=== PATIENT | female | born 1940 | race Asian ===

== ENCOUNTER 2023-08-05 17:22 | Inpatient (IN) | payer MEDICARE, OTHER ==
[~2023-08-05] VITALS: Ht 154.9 cm; Wt 55.3 kg
[2023-08-05] MEDS ORDERED: ACET-868 PO (18:47)
[2023-08-05] MEDS ORDERED: BUSP5TAB3 PO (18:47)
[2023-08-05] MEDS ORDERED: LATA2.5D15 EACHEYE (18:47)
[2023-08-05] MEDS ORDERED: BISA10SU11 RC (18:47)
[2023-08-05] MEDS ORDERED: MEMA10TA PO (18:47)
[2023-08-05] MEDS ORDERED: ATOR10TA PO (18:47)
[2023-08-05] MEDS ORDERED: DONE10TA44 PO (18:47)
[2023-08-05] MEDS ORDERED: NA P133E RC (18:47)
[2023-08-05] MEDS ORDERED: MAGN400O6 PO (18:47)
[2023-08-05] MEDS ORDERED: MAG-151 PO (18:47)
[2023-08-05 19:58] LABS: APPEARANCE,URINE CLEAR (CLEAR); BILIRUBIN,URINE NEGATIVE (NEGATIVE); BLOOD, URINE NEGATIVE Ery/uL (NEGATIVE); COLOR,URINE YELLOW (YELLOW); KETONES,URINE NEGATIVE (NEGATIVE); LEUKOCYTE ESTERASE ,URINE TRACE (NEGATIVE); NITRITE, URINE NEGATIVE (NEGATIVE); PH,URINE 6.5 (5.0-8.0); PROTEIN,URINE NEGATIVE (NEGATIVE); UGLUCOSE NEGATIVE (NEGATIVE); UROBILINOGEN,URINE 0.2 EU/dL (0.2)
[2023-08-05] MEDS ORDERED: HALOPERIDOL LACTATE INJ 5 MG/ML VIAL IM ONE (20:00)
[2023-08-05] MEDS ORDERED: HALOPERIDOL LACTATE INJ 5 MG/ML VIAL ONE (20:04)
[2023-08-05 20:10] LABS: BASOPHILS % (AUTO) 0.6 % (0.0-2.0); EOSINOPHILS # (AUTO) 0.2 K/uL (0.0-0.7); EOSINOPHILS % (AUTO) 4.1 % (0.0-6.0); HEMATOCRIT 34 % (33-45); HEMOGLOBIN 11.3 g/dL (11.5-14.8); LYMPHOCYTES # (AUTO) 1.6 K/uL (0.8-4.8); MEAN CORPUSCULAR HEMOGLOBIN 31 PG (26.0-33.0); MEAN CORPUSCULAR HGB CONC 33 g/dl (31.0-36.0); MEAN CORPUSCULAR VOLUME 94 fL (82-100); MONOCYTES # (AUTO) 0.3 K/uL (0.1-1.30); MONOCYTES % (AUTO) 7.7 % (2.0-12.0); NEUTROPHILS % (AUTO) 49.6 % (43.0-81.0); PLATELET COUNT (AUTO) 212 K/uL (150-450); RED BLOOD CELL COUNT(AUTO) 3.61 MIL/uL (4.0-5.2); RED CELL DISTRIBUTION WIDTH 14.8 % (11.5-15.0); WHITE BLOOD COUNT (AUTO) 4.1 K/uL (4.3-11.0)
[2023-08-05 20:20] LABS: CALCIUM, SERUM 9.3 mg/dL (8.5-10.1); CARBON DIOXIDE 28 mmol/L (21-32); CHLORIDE 104 mmol/L (98-107); CREATININE 0.6 mg/dL (0.6-1.3); GLUCOSE 112 mg/dL (74-106); POTASSIUM 3.6 mmol/L (3.5-5.1); SODIUM SERUM 139 mmol/L (136-145); UREA NITROGEN, BLOOD 18 mg/dL (7-18)
[2023-08-05 20:25] LABS: ALANINE AMINOTRANSFERASE 11 U/L (12-78); ALBUMIN 3.6 g/dL (3.4-5.0); ALCOHOL, BLOOD < 3 mg/dL (0-10); ALKALINE PHOSPHATASE 70 U/L (46-116); ASPARTATE AMINOTRANSFERASE 16 U/L (15-37); BILIRUBIN,DIRECT 0.1 mg/dL (0.0-0.2); BILIRUBIN,TOTAL 0.7 mg/dL (0.2-1.0); SALICYLATE 0.5 mg/dL (2.8-20.0); TOTAL PROTEIN, SERUM 7.2 g/dL (6.4-8.2)
[2023-08-05 20:25] LABS: AMPHETAMINE, URINE NEGATIVE (NEGATIVE); BARBITURATE, URINE NEGATIVE (NEGATIVE); CANNABINOID, URINE NEGATIVE (NEGATIVE); COCCAINE, URINE NEGATIVE (NEGATIVE); OPIATE, URINE NEGATIVE (NEGATIVE); PHENCYCLIDINE SCREEN,URINE NEGATIVE (NEGATIVE)
[2023-08-05 20:26] LABS: ACETAMINOPHEN 0 ug/ml (10-30)
[2023-08-05 20:40] LABS: ADD URINE CULTURE NO; BACTERIA,URINE None seen /HPF (None Seen); RBC,URINE NONE SEEN /HPF (0-2); SQUAMOUS EPITHELIAL CELL,UR None Seen /HPF (None Seen); WBC,URINE 0-2 /HPF (0-3)
[2023-08-05 22:41] LABS: BENZODIAZEPINE, URINE NEGATIVE (NEGATIVE)
[2023-08-06 03:43] VITALS: BP 123/61; TEMP 97.7; O2SAT 95
[2023-08-06 08:00] VITALS: BP 128/68; TEMP 97.6; O2SAT 98
[2023-08-06] MEDS ORDERED: BLOOD SUGAR DIAGNOSTIC 1 EACH STRIP IN ONE (08:00)
[2023-08-06] MEDS ORDERED: ACETAMINOPHEN 325 MG TABLET PO PRN ×2 (08:00→09:00)
[2023-08-06] MEDS ORDERED: ZOLPIDEM TARTRATE 5 MG TABLET PO PRN (08:00)
[2023-08-06] MEDS ORDERED: MAGNESIUM HYDROXIDE 30 ML UDC PO PRN ×2 (08:00→09:00)
[2023-08-06] MEDS ORDERED: LORAZEPAM 0.5 MG TABLET PO PRN (08:00)
[2023-08-06] MEDS ORDERED: MAG HYDROX/AL HYDROX/SIMETH 30 ML UDC PO PRN (08:00)
[2023-08-06] MEDS ORDERED: NA PHOS,M-B/NA PHOS,DI-BA 1 EA ENEMA RC PRN (09:00)
[2023-08-06] MEDS ORDERED: Medication Not On Formulary EA (Mag Hydrox/Aluminum Hyd/Simeth (Geri-Lanta Liquid) 30 ML PO PRN (09:00)
[2023-08-06] MEDS: MEMANTINE HCL 5 MG TABLET PO SCH ×3 (09:00→21:25)
[2023-08-06] MEDS ORDERED: BISACODYL SUPP (10 MG) 10 MG/SUPP.RECT SUPP.RECT RC PRN (09:00)
[2023-08-06] MEDS: busPIRone 5 MG TABLET PO SCH ×2 (13:26→17:59)
[2023-08-06 16:00] VITALS: BP 116/77; TEMP 98.2; O2SAT 99
[2023-08-06] MEDS: DONEPEZIL 5 MG TABLET PO SCH ×2 (21:25→21:36)
[2023-08-06] MEDS: ATORVASTATIN 10 MG TABLET PO SCH ×2 (21:25→21:36)
[2023-08-06] MEDS: LATANOPROST EYE DROP 0.005% 2.5 ML BOTTLE EACHEYE SCH ×2 (21:28→21:36)
[2023-08-07 08:00] VITALS: BP 125/72; TEMP 98.6; O2SAT 98
[2023-08-07 08:11] LABS: ALANINE AMINOTRANSFERASE 9 U/L (12-78); ALBUMIN 3.2 g/dL (3.4-5.0); ALKALINE PHOSPHATASE 63 U/L (46-116); ASPARTATE AMINOTRANSFERASE 20 U/L (15-37); BILIRUBIN,TOTAL 0.9 mg/dL (0.2-1.0); CALCIUM, SERUM 8.9 mg/dL (8.5-10.1); CARBON DIOXIDE 25 mmol/L (21-32); CHLORIDE 106 mmol/L (98-107); CREATININE 0.5 mg/dL (0.6-1.3); GLUCOSE 95 mg/dL (74-106); POTASSIUM 3.6 mmol/L (3.5-5.1); SODIUM SERUM 139 mmol/L (136-145); TOTAL PROTEIN, SERUM 6.6 g/dL (6.4-8.2); UREA NITROGEN, BLOOD 19 mg/dL (7-18)
[2023-08-07 08:13] LABS: CREATININE 0.5 mg/dL (0.6-1.3)
[2023-08-07 08:27] LABS: CHOLESTEROL 292 mg/dL (<200); HDL CHOLESTEROL 69 mg/dL (40-60); LDL 185 mg/dL (0-99); TRIGLYCERIDES 92 mg/dL (30-150)
[2023-08-07] MEDS: busPIRone 5 MG TABLET PO SCH ×3 (09:00→17:00)
[2023-08-07] MEDS: MEMANTINE HCL 5 MG TABLET PO SCH ×2 (09:00→21:00)
[2023-08-07] MEDS: SERTRALINE HCL 25 MG TABLET PO SCH (09:00)
[2023-08-07 16:00] VITALS: BP 110/72; TEMP 98; O2SAT 96
[2023-08-07 20:00] VITALS: BP 115/67; TEMP 98.3; O2SAT 96
[2023-08-07] MEDS: LATANOPROST EYE DROP 0.005% 2.5 ML BOTTLE EACHEYE SCH (21:42)
[2023-08-07] MEDS: DONEPEZIL 5 MG TABLET PO SCH (21:42)
[2023-08-07] MEDS: ATORVASTATIN 10 MG TABLET PO SCH (21:42)
[2023-08-08 08:00] VITALS: BP 115/67; TEMP 97.8; O2SAT 97
[2023-08-08] MEDS: MEMANTINE HCL 5 MG TABLET PO SCH ×3 (08:24→21:16)
[2023-08-08] MEDS: busPIRone 5 MG TABLET PO SCH ×3 (08:24→16:13)
[2023-08-08] MEDS: SERTRALINE HCL 25 MG TABLET PO SCH (08:26)
[2023-08-08 16:00] VITALS: BP 123/76; TEMP 98; O2SAT 96
[2023-08-08 21:11] VITALS: BP 127/73; TEMP 98.2; O2SAT 96
[2023-08-08] MEDS: ATORVASTATIN 10 MG TABLET PO SCH ×2 (21:16→21:31)
[2023-08-08] MEDS: DONEPEZIL 5 MG TABLET PO SCH ×2 (21:16→21:31)
[2023-08-08] MEDS: LATANOPROST EYE DROP 0.005% 2.5 ML BOTTLE EACHEYE SCH (21:17)
[2023-08-09 08:00] VITALS: BP_SYST 106; BP_SYST 113; BP_DIAS 64; BP_DIAS 75; TEMP 97.5; TEMP 98.2; O2SAT 96; O2SAT 97
[2023-08-09] MEDS: busPIRone 5 MG TABLET PO SCH (08:13)
[2023-08-09] MEDS: SERTRALINE HCL 25 MG TABLET PO SCH (08:14)
[2023-08-09] MEDS: MEMANTINE HCL 5 MG TABLET PO SCH ×2 (08:14→21:00)
[2023-08-09] MEDS: DIVALPROEX SODIUM 125 MG CAP.SPRINK PO SCH ×2 (09:30→21:00)
[2023-08-09 19:44] VITALS: BP 111/71; TEMP 97.8; O2SAT 99
[2023-08-09] MEDS: LATANOPROST EYE DROP 0.005% 2.5 ML BOTTLE EACHEYE SCH (21:04)
[2023-08-09] MEDS: DONEPEZIL 5 MG TABLET PO SCH (21:04)
[2023-08-09] MEDS: ATORVASTATIN 10 MG TABLET PO SCH (21:13)
[2023-08-10 08:00] VITALS: BP 116/64; TEMP 97.7; O2SAT 100
[2023-08-10] MEDS: DIVALPROEX SODIUM 125 MG CAP.SPRINK PO SCH ×5 (08:45→21:20)
[2023-08-10] MEDS: MEMANTINE HCL 5 MG TABLET PO SCH ×4 (08:45→21:00)
[2023-08-10 16:00] VITALS: BP 100/60; TEMP 97.9; O2SAT 99
[2023-08-10] MEDS: DONEPEZIL 5 MG TABLET PO SCH ×2 (21:20→21:24)
[2023-08-10] MEDS: ATORVASTATIN 10 MG TABLET PO SCH ×2 (21:20→21:25)
[2023-08-10 21:21] VITALS: BP 108/64; TEMP 98; O2SAT 99
[2023-08-10] MEDS: LATANOPROST EYE DROP 0.005% 2.5 ML BOTTLE EACHEYE SCH ×2 (21:21→21:24)
[2023-08-11 08:00] VITALS: BP 110/73; TEMP 97.7; O2SAT 98
[2023-08-11] MEDS: MEMANTINE HCL 5 MG TABLET PO SCH (09:00)
[2023-08-11] MEDS: DIVALPROEX SODIUM 125 MG CAP.SPRINK PO SCH (09:00)
== END 2023-08-11 15:31 | DRG 885 ==
LOC: ER 17:44 → GPS 08-06 02:37
PROVIDERS: ADMIT Psychiatry & Neurology Psychiatry; ATTEND Internal Medicine
DX: F39 Unspecified mood [affective] disorder (principal); F03.93 Unspecified dementia, unspecified severity, with mood disturbance; F03.918 Unspecified dementia, unspecified severity, with other behavioral disturbance; F29 Unspecified psychosis not due to a substance or known physiological condition; F41.9 Anxiety disorder, unspecified; Z73.6 Limitation of activities due to disability; E78.5 Hyperlipidemia, unspecified; D63.8 Anemia in other chronic diseases classified elsewhere; F32.A Depression, unspecified; Z66 Do not resuscitate; Z79.899 Other long term (current) drug therapy; Z86.73 Personal history of transient ischemic attack (TIA), and cerebral infarction without residual deficits; M62.81 Muscle weakness (generalized); Z20.822 Contact with and (suspected) exposure to COVID-19
CPT/HCPCS: 36415; 80048-TC; 80053-TC; 80061-TC; 80076-TC; 81001; 82565-TC; 82962-TC; 85025-TC; G0480; J1630

== ENCOUNTER 2024-02-11 12:19 | Inpatient (IN) | payer MEDICARE, OTHER ==
[~2024-02-11] VITALS: Ht 154.9 cm; Wt 54.9 kg
[~2024-02-11 12:19] MED LIST: ACET-868 PO; ATOR10TA PO; BISA10SU11 RC; BUSP5TAB3 PO; DONE10TA44 PO; LATA2.5D15 EACHEYE; MAG-151 PO; MAGN400O6 PO; MEMA10TA PO; NA P133E RC
[2024-02-11 13:12] LABS: BASOPHILS % (AUTO) 0.2 % (0.0-2.0); EOSINOPHILS # (AUTO) 0.1 K/uL (0.0-0.7); EOSINOPHILS % (AUTO) 0.8 % (0.0-6.0); HEMATOCRIT 36 % (33-45); HEMOGLOBIN 11.8 g/dL (11.5-14.8); LYMPHOCYTES # (AUTO) 1.3 K/uL (0.8-4.8); MEAN CORPUSCULAR HEMOGLOBIN 31 PG (26.0-33.0); MEAN CORPUSCULAR HGB CONC 33 g/dl (31.0-36.0); MEAN CORPUSCULAR VOLUME 94 fL (82-100); MONOCYTES # (AUTO) 0.4 K/uL (0.1-1.30); MONOCYTES % (AUTO) 5.3 % (2.0-12.0); NEUTROPHILS # (AUTO) 5.3 K/uL (1.8-8.9); NEUTROPHILS % (AUTO) 74.7 % (43.0-81.0); PLATELET COUNT (AUTO) 203 K/uL (150-450); RED BLOOD CELL COUNT(AUTO) 3.83 MIL/uL (4.0-5.2); RED CELL DISTRIBUTION WIDTH 13.9 % (11.5-15.0)
[2024-02-11 13:20] LABS: CALCIUM, SERUM 9.3 mg/dL (8.5-10.1); CARBON DIOXIDE 26 mmol/L (21-32); CHLORIDE 104 mmol/L (98-107); CREATININE 0.7 mg/dL (0.6-1.3); GLUCOSE 125 mg/dL (74-106); POTASSIUM 3.8 mmol/L (3.5-5.1); SODIUM SERUM 137 mmol/L (136-145); UREA NITROGEN, BLOOD 23 mg/dL (7-18)
[2024-02-11 13:26] LABS: ALANINE AMINOTRANSFERASE 21 U/L (12-78); ALBUMIN 3.4 g/dL (3.4-5.0); ALCOHOL, BLOOD < 3 mg/dL (0-10); ALKALINE PHOSPHATASE 78 U/L (46-116); ASPARTATE AMINOTRANSFERASE 23 U/L (15-37); BILIRUBIN,DIRECT 0.1 mg/dL (0.0-0.2); BILIRUBIN,TOTAL 0.5 mg/dL (0.2-1.0); TOTAL PROTEIN, SERUM 7.3 g/dL (6.4-8.2)
[2024-02-11 13:28] LABS: ACETAMINOPHEN <10 ug/ml (10-30)
[2024-02-11 14:12] LABS: APPEARANCE,URINE Clear (CLEAR); BILIRUBIN,URINE Negative (NEGATIVE); BLOOD, URINE Trace-intact Ery/uL (NEGATIVE); COLOR,URINE YELLOW (YELLOW); KETONES,URINE Negative (NEGATIVE); LEUKOCYTE ESTERASE ,URINE Small (NEGATIVE); NITRITE, URINE Positive (NEGATIVE); PROTEIN,URINE Negative (NEGATIVE); UGLUCOSE Negative (NEGATIVE); UROBILINOGEN,URINE 0.2 EU/dL (0.2)
[2024-02-11] MEDS: CEFTRIAXONE 1GM BAG (ER ONLY) 50 ML IV ONE (14:50)
[2024-02-11 14:56] LABS: AMPHETAMINE, URINE NEGATIVE (NEGATIVE); BARBITURATE, URINE NEGATIVE (NEGATIVE); BENZODIAZEPINE, URINE NEGATIVE (NEGATIVE); CANNABINOID, URINE NEGATIVE (NEGATIVE); COCCAINE, URINE NEGATIVE (NEGATIVE); OPIATE, URINE NEGATIVE (NEGATIVE); PHENCYCLIDINE SCREEN,URINE NEGATIVE (NEGATIVE)
[2024-02-11 15:07] LABS: ADD URINE CULTURE YES; BACTERIA,URINE 3+ /HPF (None Seen)
[2024-02-11] MEDS ORDERED: DIVA-76 PO (18:24)
[2024-02-12] MEDS ORDERED: ZOLPIDEM TARTRATE 5 MG TABLET PO PRN
[2024-02-12] MEDS ORDERED: LORAZEPAM 1 MG TABLET PO PRN
[2024-02-12] MEDS ORDERED: MAG HYDROX/AL HYDROX/SIMETH 30 ML UDC PO PRN
[2024-02-12] MEDS ORDERED: ACETAMINOPHEN 325 MG TABLET PO PRN
[2024-02-12] MEDS ORDERED: MAGNESIUM HYDROXIDE 30 ML UDC PO PRN
[2024-02-12 00:38] VITALS: BP 123/68; TEMP 98; O2SAT 98
[2024-02-12] MEDS: BLOOD SUGAR DIAGNOSTIC 1 EACH STRIP IN ONE (00:58)
[2024-02-12 07:47] LABS: BASOPHILS % (AUTO) 0.2 % (0.0-2.0); EOSINOPHILS % (AUTO) 0.1 % (0.0-6.0); HEMATOCRIT 36 % (33-45); HEMOGLOBIN 12.2 g/dL (11.5-14.8); LYMPHOCYTES # (AUTO) 0.8 K/uL (0.8-4.8); LYMPHOCYTES % (AUTO) 9.5 % (20.0-44.0); MEAN CORPUSCULAR HEMOGLOBIN 32 PG (26.0-33.0); MEAN CORPUSCULAR HGB CONC 34 g/dl (31.0-36.0); MEAN CORPUSCULAR VOLUME 93 fL (82-100); MONOCYTES # (AUTO) 0.5 K/uL (0.1-1.30); MONOCYTES % (AUTO) 5.8 % (2.0-12.0); NEUTROPHILS % (AUTO) 84.4 % (43.0-81.0); PLATELET COUNT (AUTO) 209 K/uL (150-450); RED BLOOD CELL COUNT(AUTO) 3.85 MIL/uL (4.0-5.2); RED CELL DISTRIBUTION WIDTH 13.8 % (11.5-15.0); WHITE BLOOD COUNT (AUTO) 8.3 K/uL (4.3-11.0)
[2024-02-12 08:00] VITALS: BP 120/79; TEMP 97.5; O2SAT 96
[2024-02-12 08:07] LABS: CARBON DIOXIDE 23 mmol/L (21-32); CHLORIDE 102 mmol/L (98-107); CREATININE 0.6 mg/dL (0.6-1.3); GLUCOSE 120 mg/dL (74-106); POTASSIUM 3.5 mmol/L (3.5-5.1); SODIUM SERUM 139 mmol/L (136-145); UREA NITROGEN, BLOOD 13 mg/dL (7-18)
[2024-02-12] MEDS: MEMANTINE HCL 5 MG TABLET PO SCH (08:17)
[2024-02-12] MEDS: busPIRone 5 MG TABLET PO SCH (09:00)
[2024-02-12] MEDS: SERTRALINE HCL 25 MG TABLET PO SCH (09:00)
[2024-02-12] MEDS: DIVALPROEX SODIUM 250 MG TABLET.DR PO SCH (09:00)
[2024-02-12] MEDS ORDERED: busPIRone 5 MG TABLET PO SCH (09:00)
[2024-02-12] MEDS ORDERED: DIVALPROEX SODIUM 250 MG TABLET.DR PO SCH (09:00)
[2024-02-12] MEDS: CEPHALEXIN MONOHYDRATE 500 MG CAPSULE PO SCH (11:00)
[2024-02-12 11:26] LABS: CHOLESTEROL 357 mg/dL (<200); HDL CHOLESTEROL 83 mg/dL (40-60); LDL 236 mg/dL (0-99); TRIGLYCERIDES 97 mg/dL (30-150)
[2024-02-12 16:00] VITALS: BP 134/80; TEMP 99; O2SAT 98
[2024-02-12 20:00] VITALS: BP 125/76; TEMP 97.6; O2SAT 98
[2024-02-12] MEDS: LATANOPROST EYE DROP 0.005% 2.5 ML BOTTLE EACHEYE SCH (21:25)
[2024-02-12] MEDS: DONEPEZIL 5 MG TABLET PO SCH (21:26)
[2024-02-12] MEDS: ATORVASTATIN 10 MG TABLET PO SCH (21:27)
[2024-02-13 08:00] VITALS: BP 126/77; TEMP 97.6; O2SAT 95
[2024-02-13 16:00] VITALS: BP 136/69; TEMP 98.6; O2SAT 95
[2024-02-13 20:32] VITALS: BP 137/80; TEMP 99; O2SAT 98
[2024-02-14 08:00] VITALS: BP 117/79; TEMP 97.7; O2SAT 97
[2024-02-14 16:00] VITALS: BP 127/75; TEMP 98.6; O2SAT 97
[2024-02-14] MEDS: OLANZAPINE 2.5 MG TABLET PO SCH (16:44)
[2024-02-14 20:00] VITALS: BP 127/77; TEMP 98.4; O2SAT 97
[2024-02-15 08:00] VITALS: BP 131/71; TEMP 97.8; O2SAT 97
[2024-02-15 16:00] VITALS: BP 129/73; TEMP 97.9; O2SAT 98
[2024-02-15 20:33] VITALS: BP 99/67; TEMP 98; O2SAT 99
[2024-02-16 08:00] VITALS: BP 109/68; TEMP 98.6; O2SAT 99
[2024-02-16] MEDS: risperiDONE 1 MG TABLET PO SCH (15:00)
[2024-02-16] MEDS: OLANZAPINE 10 MG VIAL IM PRN (15:23)
[2024-02-16 16:00] VITALS: BP 120/67; TEMP 98.6; O2SAT 96
[2024-02-16 20:32] VITALS: BP 117/74; TEMP 98.6; O2SAT 97
[2024-02-17 08:00] VITALS: BP 106/69; TEMP 98.6; O2SAT 95
[2024-02-17 16:00] VITALS: BP 106/65; TEMP 97.9; O2SAT 97
[2024-02-17 20:00] VITALS: BP 115/74; TEMP 98; O2SAT 97
[2024-02-18 08:00] VITALS: BP 117/67; TEMP 97.8; O2SAT 97
[2024-02-18 16:00] VITALS: BP 96/68; TEMP 97.9; O2SAT 99
[2024-02-18 20:00] VITALS: BP 104/67; TEMP 98.1; O2SAT 98
[2024-02-18] MEDS ORDERED: Z GUARD REMEDY 4 OZ OINT TP PRN (20:00)
[2024-02-18 22:23] VITALS: BP 109/70; TEMP 98; O2SAT 98
[2024-02-19 08:00] VITALS: BP 120/69; TEMP 97.8; O2SAT 98
[2024-02-19 12:40] LABS: VALPROIC ACID 22 ug/mL (50-100)
[2024-02-19 12:43] LABS: ALANINE AMINOTRANSFERASE 12 U/L (12-78); ALBUMIN 3.1 g/dL (3.4-5.0); ALKALINE PHOSPHATASE 105 U/L (46-116); ASPARTATE AMINOTRANSFERASE 13 U/L (15-37); BILIRUBIN,TOTAL 0.9 mg/dL (0.2-1.0); CALCIUM, SERUM 9.1 mg/dL (8.5-10.1); CARBON DIOXIDE 28 mmol/L (21-32); CHLORIDE 104 mmol/L (98-107); CREATININE 0.8 mg/dL (0.6-1.3); GLUCOSE 112 mg/dL (74-106); SODIUM SERUM 143 mmol/L (136-145); TOTAL PROTEIN, SERUM 7.7 g/dL (6.4-8.2); UREA NITROGEN, BLOOD 27 mg/dL (7-18)
[2024-02-19 12:47] LABS: BASOPHILS % (AUTO) 0.4 % (0.0-2.0); EOSINOPHILS # (AUTO) 0.1 K/uL (0.0-0.7); EOSINOPHILS % (AUTO) 1.9 % (0.0-6.0); HEMATOCRIT 40 % (33-45); HEMOGLOBIN 13.4 g/dL (11.5-14.8); LYMPHOCYTES # (AUTO) 1.3 K/uL (0.8-4.8); LYMPHOCYTES % (AUTO) 20.8 % (20.0-44.0); MEAN CORPUSCULAR HEMOGLOBIN 31 PG (26.0-33.0); MEAN CORPUSCULAR HGB CONC 33 g/dl (31.0-36.0); MEAN CORPUSCULAR VOLUME 93 fL (82-100); MONOCYTES # (AUTO) 0.4 K/uL (0.1-1.30); MONOCYTES % (AUTO) 6.7 % (2.0-12.0); NEUTROPHILS # (AUTO) 4.4 K/uL (1.8-8.9); NEUTROPHILS % (AUTO) 70.2 % (43.0-81.0); PLATELET COUNT (AUTO) 240 K/uL (150-450); RED BLOOD CELL COUNT(AUTO) 4.32 MIL/uL (4.0-5.2); RED CELL DISTRIBUTION WIDTH 13.7 % (11.5-15.0); WHITE BLOOD COUNT (AUTO) 6.3 K/uL (4.3-11.0)
[2024-02-19 16:15] VITALS: BP 102/69; TEMP 98.3; O2SAT 97
[2024-02-19 20:00] VITALS: BP 124/71; TEMP 98.3; O2SAT 97
[2024-02-20 08:00] VITALS: BP_SYST 100; BP_SYST 145; BP_DIAS 59; BP_DIAS 76; TEMP 97.8; TEMP 97.9; O2SAT 95; O2SAT 96
[2024-02-20 16:04] VITALS: BP 103/68; TEMP 98.3; O2SAT 96
[2024-02-20 20:28] VITALS: BP 96/64; TEMP 98.3; O2SAT 98
[2024-02-21 08:00] VITALS: BP 97/62; TEMP 97.6; O2SAT 96
[2024-02-21] MEDS: PALIPERIDONE PALMITATE 234 MG/1.5 ML SYRINGE IM ONE (09:10)
[2024-02-21 16:00] VITALS: BP 98/65; TEMP 98.3; O2SAT 96
[2024-02-21 17:12] VITALS: BP 103/65
[2024-02-21 21:18] VITALS: BP 97/63; TEMP 98.2; O2SAT 96
[2024-02-22 08:00] VITALS: BP 110/69; TEMP 97.9; O2SAT 97
[2024-02-22 16:00] VITALS: BP 105/65; TEMP 98.7; O2SAT 97
[2024-02-22 21:09] VITALS: BP 102/63; TEMP 98.8; O2SAT 97
[2024-02-23 08:00] VITALS: BP 97/66; TEMP 98; O2SAT 97
[2024-02-23 16:00] VITALS: BP 98/63; TEMP 98; O2SAT 98
[2024-02-23 20:00] VITALS: BP 98/62; TEMP 98.3; O2SAT 95
[2024-02-24 08:00] VITALS: BP 99/63; TEMP 97.7; O2SAT 97
[2024-02-24 16:00] VITALS: BP 98/62; TEMP 98.1; O2SAT 95
[2024-02-24 20:00] VITALS: BP 105/65; TEMP 98.9; O2SAT 95
[2024-02-25 08:00] VITALS: BP 109/67; TEMP 97.6; O2SAT 94
[2024-02-25 16:00] VITALS: BP 100/65; TEMP 97.7; O2SAT 98
[2024-02-25 21:00] VITALS: BP 120/66; TEMP 98; O2SAT 98
[2024-02-26 08:00] VITALS: BP 94/58; TEMP 97.8; O2SAT 94
[2024-02-26 16:00] VITALS: BP 91/58; TEMP 98.3; O2SAT 99
[2024-02-26 20:00] VITALS: BP 110/69; TEMP 98; O2SAT 98
[2024-02-27 08:00] VITALS: BP 90/62; TEMP 97.6; O2SAT 97
[2024-02-27 16:00] VITALS: BP 102/61; TEMP 98.6; O2SAT 95
[2024-02-27 20:28] VITALS: BP 98/61; TEMP 98.4; O2SAT 96
[2024-02-28 08:00] VITALS: BP 108/68; TEMP 97.9; O2SAT 96
[2024-02-28] MEDS: PALIPERIDONE PALMITATE 156 MG/ML SYRINGE IM SCH (09:09)
[2024-02-28 16:00] VITALS: BP 112/66; TEMP 97.9; O2SAT 100
[2024-02-28 21:29] VITALS: BP 109/60; TEMP 97.9; O2SAT 96
[2024-02-29 08:00] VITALS: BP 105/63; TEMP 97.8; O2SAT 95
== END 2024-02-29 14:15 | DRG 885 ==
LOC: ER 12:25 → GPS 23:18
PROVIDERS: ADMIT Nurse Practitioner Psychiatric/Mental Health; ATTEND Student in an Organized Health Care Education/Training Program
DX: F39 Unspecified mood [affective] disorder (principal); F03.918 Unspecified dementia, unspecified severity, with other behavioral disturbance; N39.0 Urinary tract infection, site not specified; F03.93 Unspecified dementia, unspecified severity, with mood disturbance; F03.94 Unspecified dementia, unspecified severity, with anxiety; F03.911 Unspecified dementia, unspecified severity, with agitation; F29 Unspecified psychosis not due to a substance or known physiological condition; Z66 Do not resuscitate; F41.9 Anxiety disorder, unspecified; Z86.73 Personal history of transient ischemic attack (TIA), and cerebral infarction without residual deficits; Z79.899 Other long term (current) drug therapy; E78.5 Hyperlipidemia, unspecified; H40.9 Unspecified glaucoma; Z73.6 Limitation of activities due to disability; F32.9 Major depressive disorder, single episode, unspecified; B96.89 Other specified bacterial agents as the cause of diseases classified elsewhere
CPT/HCPCS: 36415; 80048-TC; 80053-TC; 80061-TC; 80076-TC; 80164-TC; 81001; 85025-TC; 87040-TC; 87081-TC; 87086-TC; G0480; J0696; J2426; J3490